=== PATIENT | female | born 1990 | race American Indian/Alaskan Native ===

== ENCOUNTER 2019-05-14 19:23 | Emergency (ER) | payer MEDICAID ==
--- NOTE | 2019-05-14 20:32 | Emergency Department Report ---
Blank Doc - Documentation Documentation: 28-year-old female that presents with vaginal bleeding and pelvic pain. This initial assessment/diagnostic orders/clinical plan/treatment(s) is/are subject to change based on patient's health status, clinical progression and re- assessment by fellow clinical providers in the ED. Further treatment and workup at subsequent clinical providers discretion. Patient/guardians urged not to elope from the ED as their condition may be serious if not clinically assessed and managed. Initial orders include: 1- Patient sent to [facility] for further evaluation and treatment 2- labs 3- UA 4- US OB
[2019-05-14 20:37] VITALS: BP 127/79
[2019-05-14 21:05] LABS: Basophils % (Auto) 0.6 % (0.0-1.8); Eosinophils % (Auto) 0.7 % (0.0-4.3); Hematocrit 40.3 % (30.3-42.9); Hemoglobin 13.6 gm/dl (10.1-14.3); Lymphocytes # (Auto) 1.6 K/mm3 (1.2-5.4); Lymphocytes % (Auto) 26.1 % (13.4-35.0); Mean Corpuscular HGB Conc 34 % (30-34); Mean Corpuscular Volume 90 fl (79-97); Monocytes # (Auto) 0.4 K/mm3 (0.0-0.8); Monocytes % (Auto) 7.1 % (0.0-7.3); Platelet Count 227 K/mm3 (140-440); Red Blood Count 4.49 M/mm3 (3.65-5.03); Red Cell Distribution Width 12.9 % (13.2-15.2)
--- NOTE | 2019-05-14 21:50 | Ultrasound Report ---
OB ultrasound. 05/14/2019. HISTORY: Pelvic pain. Vaginal bleeding. FINDINGS: Imaging was performed transabdominally and endovaginally. The uterus measures 9 x 4.1 x 5.2 cm. Endometrial stripe measures 6 mm. Negative for intrauterine pre gnancy. Right ovary measures 4.1 x 2.5 x 2.3 cm. Left ovary measures 3.8 x 2.1 x 3.2 cm. Blood flow present b ilaterally. Trace free fluid is noted. IMPRESSION: 1. Negative for intrauterine . 2. Trace free fluid. Signer Name: Félix Holbrook MD Signed: 05/14/2019 9:46 PM Workstation Name: [id number]
[2019-05-14 22:22] LABS: Bilirubin,Urine NEG (Negative); Blood,Urine LG (Negative); Color,Urine Amber (Yellow); Mucus,Urine 2+ /HPF; Urobilinogen,Urine < 2.0 mg/dL (<2.0)
[2019-05-14 22:42] LABS: RBC,Urine > 182.0 /HPF (0.0-6.0)
--- NOTE | 2019-05-15 00:05 | Emergency Department Report ---
ED HPI - General Chief complaint: Vaginal Bleeding Stated complaint: ABD CRAMPS/VAGINAL BLEEDING Time Seen by Provider: 05/14/19 20:31 Source: patient Mode of arrival: Ambulatory Limitations: No Limitations - History of Present Illness Initial comments: Patient is a 28-year-old female presents to emergency room with complaints of suprapubic abdominal cramping that began today. she also began to have vaginal bleeding today. She states she is only had to use one pad today. She states last week she went to a clinic and had a positive urine test. denies any dysuria, urinary frequency, urinary urgency, nausea, vomiting, diarrhea, fever. LNMP was April 13. Denies any past medical history or allergies to medications. /P:0/A:2 - Related Data Allergies Allergy/AdvReac Type Severity Reaction Status Date / Time No Known Allergies Allergy Verified 05/14/19 19:55 ED Review of Systems ROS: Stated complaint: ABD CRAMPS/VAGINAL BLEEDING Other details as noted in HPI Comment: All other systems reviewed and negative ED Past Medical Hx - Past Medical History Previous Medical History?: No - Surgical History Past Surgical History?: No - Social History Smoking Status: Never Smoker Substance Use Type: None ED Physical Exam - General Limitations: No Limitations General appearance: alert, in no apparent distress - Head Head exam: Present: atraumatic, normocephalic - Eye Eye exam: Present: normal appearance - ENT ENT exam: Present: mucous membranes moist - Respiratory Respiratory exam: Present: normal lung sounds bilaterally. Absent: respiratory distress, wheezes, rales, rhonchi, stridor, chest wall tenderness, accessory muscle use, decreased breath sounds, prolonged expiratory - Cardiovascular Cardiovascular Exam: Present: regular rate, normal rhythm, normal heart sounds. Absent: systolic murmur, diastolic murmur, rubs, gallop - GI/Abdominal GI/Abdominal exam: Present: soft, normal bowel sounds. Absent: distended, tenderness, guarding, rebound, rigid - Neurological Exam Neurological exam: Present: alert, oriented X3 - Psychiatric Psychiatric exam: Present: normal affect, normal mood - Skin Skin exam: Present: warm, dry, intact ED Course Vital Signs 05/14/19 20:34 Temperature 98.5 F Pulse Rate 67 Respiratory 18 Rate Blood Pressure 127/79 O2 Sat by Pulse 100 Oximetry ED Medical Decision Making - Lab Data Result diagrams: 05/14/19 20:50 Lab Results 05/14/19 05/14/19 05/14/19 Range/Units 20:50 20:50 20:50 WBC 6.3 (4.5-11.0) K/mm3 RBC 4.49 (3.65-5.03) M/mm3 Hgb 13.6 (10.1-14.3) gm/dl Hct 40.3 (30.3-42.9) % MCV 90 (79-97) fl MCH 30 (28-32) pg MCHC 34 (30-34) % RDW 12.9 L (13.2-15.2) % Plt Count 227 (140-440) K/mm3 Lymph % (Auto) 26.1 (13.4-35.0) % Terry % (Auto) 7.1 (0.0-7.3) % Eos % (Auto) 0.7 (0.0-4.3) % Baso % (Auto) 0.6 (0.0-1.8) % Lymph # 1.6 (1.2-5.4) K/mm3 Terry # 0.4 (0.0-0.8) K/mm3 Eos # 0.0 (0.0-0.4) K/mm3 Baso # 0.0 (0.0-0.1) K/mm3 Seg Neutrophils % 65.5 (40.0-70.0) % Seg Neutrophils # 4.1 (1.8-7.7) K/mm3 HCG, Quant 22.12 H (0-4) mIU/mL Urine Color (Yellow) Urine Turbidity (Clear) Urine pH (5.0-7.0) Ur Specific [place] (1.003-1.030) Urine Protein (Negative) mg/dL Urine Glucose (UA) (Negative) mg/dL Urine Ketones (Negative) mg/dL Urine Blood (Negative) Urine Nitrite (Negative) Urine Bilirubin (Negative) Urine Urobilinogen (<2.0) mg/dL Ur Leukocyte Esterase (Negative) Urine WBC (Auto) (0.0-6.0) /HPF Urine RBC (Auto) (0.0-6.0) /HPF U Epithel Cells (Auto) (0-13.0) /HPF Urine Mucus /HPF Urine Yeast (Budding) /HPF Blood Type B POSITIVE 05/14/19 Range/Units 21:53 WBC (4.5-11.0) K/mm3 RBC (3.65-5.03) M/mm3 Hgb (10.1-14.3) gm/dl Hct (30.3-42.9) % MCV (79-97) fl MCH (28-32) pg MCHC (30-34) % RDW (13.2-15.2) % Plt Count (140-440) K/mm3 Lymph % (Auto) (13.4-35.0) % Terry % (Auto) (0.0-7.3) % Eos % (Auto) (0.0-4.3) % Baso % (Auto) (0.0-1.8) % Lymph # (1.2-5.4) K/mm3 Terry # (0.0-0.8) K/mm3 Eos # (0.0-0.4) K/mm3 Baso # (0.0-0.1) K/mm3 Seg Neutrophils % (40.0-70.0) % Seg Neutrophils # (1.8-7.7) K/mm3 HCG, Quant (0-4) mIU/mL Urine Color Matilda (Yellow) Urine Turbidity Cloudy (Clear) Urine pH 5.0 (5.0-7.0) Ur Specific [place] 1.027 (1.003-1.030) Urine Protein 100 mg/dl (Negative) mg/dL Urine Glucose (UA) Neg (Negative) mg/dL Urine Ketones 20 (Negative) mg/dL Urine Blood Lg (Negative) Urine Nitrite Neg (Negative) Urine Bilirubin Neg (Negative) Urine Urobilinogen < 2.0 (<2.0) mg/dL Ur Leukocyte Esterase Tr (Negative) Urine WBC (Auto) 40.0 H (0.0-6.0) /HPF Urine RBC (Auto) > 182.0 (0.0-6.0) /HPF U Epithel Cells (Auto) 7.0 (0-13.0) /HPF Urine Mucus 2+ /HPF Urine Yeast (Budding) 1+ /HPF Blood Type - Radiology Data Radiology results: report reviewed OB ultrasound. 05/14/2019. HISTORY: Pelvic pain. Vaginal bleeding. FINDINGS: Imaging was performed transabdominally and endovaginally. The uterus measures 9 x 4.1 x 5.2 cm. Endometrial stripe measures 6 mm. Negative for intrauterine . Right ovary measures 4.1 x 2.5 x 2.3 cm. Left ovary measures 3.8 x 2.1 x 3.2 cm. Blood flow present bilaterally. Trace free fluid is noted. IMPRESSION: 1. Negative for intrauterine . 2. Trace free fluid. Signer Name: Félix Holbrook MD Signed: 05/14/2019 9:46 PM Workstation Name: [id number] Transcribed By: ES Dictated By: Félix Holbrook MD Electronically Authenticated By: Félix Holbrook MD Signed Date/Time: 05/14/19 9124 - Medical Decision Making Patient is a 28-year-old female presents to emergency room with complaints of suprapubic abdominal cramping that began today. she also began to have vaginal bleeding today. She states she is only had to use one pad today. She states last week she went to a clinic and had a positive urine test. denies any dysuria, urinary frequency, urinary urgency, nausea, vomiting, diarrhea, fever. LNMP was April 13. Denies any past medical history or allergies to medications. /P:0/A:2. VSS. on exam: no abd tenderness, no peritoneal signs. CBC WNL. hcg quant is 22.pt is Rh positive. UA with many RBCs, WBCs present with only small amount of leukocyte esterase and no nitrites most likely due to bleeding. OB US shows: 1. Negative for intrauterine . 2. Trace free fluid. advised pt she would need to have repeat hCG Quant in approximately 48 hours. May return to the emergency room, go to an urgent care, got to primary care, or [facility] to have this completed. Follow-up with an [facility] in the next 2-3 days. listed several OB GY[facility] in the area. Return to emergency room for any new or worsening symptoms. - Differential Diagnosis IUP, ectopic, threatened miscarriage, placenta previa, ovarian cyst Critical care attestation.: If time is entered above; I have spent that time in minutes in the direct care of this critically ill patient, excluding procedure time. ED Disposition Clinical Impression: Threatened miscarriage Disposition: DC- TO HOME OR SELFCARE Is pt being admited?: No Does the pt Need Aspirin: No Condition: Stable Instructions: Threatened Miscarriage (ED) Additional Instructions: Will need to have repeat hCG Quant in approximately 48 hours. May return to the emergency room, go to an urgent care, got to primary care, or [facility] to have this completed. Follow-up with an [facility] in the next 2-3 days. listed several OB GYNs in the area. Return to emergency room for any new or worsening symptoms. Referrals: ADALI LOCKE MD [Primary Care Provider] - 2-3 Days [facility] [Provider Group] - 2-3 Days [facility] [Provider Group] - 2-3 Days [facility] [Provider Group] - 2-3 Days Time of Disposition: 00:03 Print Language: MARSHALLESE
== END 2019-05-15 00:10 | disposition home or self-care (01) ==
LOC: ED 19:23
DX: O20.0 Threatened abortion (principal); Z3A.01 Less than 8 weeks gestation of pregnancy
CPT/HCPCS: 36415; 76801; 76817; 81001; 84702; 85025; 86900; 86901; 87086